=== PATIENT | female | born 1975 | race Hispanic/Latino ===

== ENCOUNTER 2022-06-06 13:12 | Emergency (ER) | payer OTHER | END 2022-06-06 15:45 | disposition home or self-care (01) | LOC: CSHERS 13:12 | DX: H69.91 Unspecified Eustachian tube disorder, right ear (principal) | CPT/HCPCS: 99283 ==

== ENCOUNTER 2023-09-09 07:29 | Outpatient (CLI) | payer OTHER | END 2023-09-09 07:30 | disposition home or self-care (01) | LOC: CSHULT 07:29 | PROVIDERS: ATTEND Family Medicine | DX: R10.2 Pelvic and perineal pain (principal); R10.31 Right lower quadrant pain; K76.0 Fatty (change of) liver, not elsewhere classified; Z90.49 Acquired absence of other specified parts of digestive tract; Z90.710 Acquired absence of both cervix and uterus | CPT/HCPCS: 76700; 76857 ==